=== PATIENT | female | born 1995 | race African-American/Black ===

== ENCOUNTER 2018-12-23 00:38 | Emergency (ER) | payer MEDICAID, OTHER ==
[~2018-12-23] VITALS: Ht 167.6 cm; Wt 65.0 kg
[2018-12-23] MEDS ORDERED: ACETAMINOPHEN 325MG TABLET PO STA (01:40)
[2018-12-23 04:18] LABS: CLARITY URINE TURBID (CLEAR); COLOR URINE YELLOW (YELLOW); KETONES URINE 3+ (NEGATIVE); LEUKOCYTE ESTERASE URINE 3+ (NEGATIVE); NITRITE URINE NEGATIVE (NEGATIVE); OCCULT BLOOD URINE 1+ (NEGATIVE); PH URINE 5.5 (4.5-8.0); PROTEIN URINE TRACE (NEGATIVE); SPECIFIC GRAVITY URINE 1.026 (1.005-1.030)
[2018-12-23 06:08] VITALS: BP 122/67
== END 2018-12-23 06:10 | disposition home or self-care (01) ==
LOC: ER 00:38
DX: O99.89 Other specified diseases and conditions complicating pregnancy, childbirth and the puerperium (principal); S40.021A Contusion of right upper arm, initial encounter; Z3A.08 8 weeks gestation of pregnancy; V49.88XA Car occupant (driver) (passenger) injured in other specified transport accidents, initial encounter; Y93.89 Activity, other specified; Y92.89 Other specified places as the place of occurrence of the external cause; Y99.8 Other external cause status
CPT/HCPCS: 73030; 73060; 81003; 87077; 87186; 99284